=== PATIENT | female | born 1975 | race Caucasian/White ===

== ENCOUNTER 2020-11-10 13:09 | Emergency (ER) | payer OTHER, MEDICAID ==
[~2020-11-10] VITALS: Ht 162.6 cm; Wt 99.3 kg
[~2020-11-10 13:09] MED LIST: SOM350 PO
[2020-11-10 13:44] VITALS: Ht 162.6 cm; Wt 99.3 kg
[2020-11-10 14:29] LABS: BASOPHIL % 0.6 % (0.2-1.3); PLATELET COUNT 398 x10^3mcL (179-408); RED CELL DISTRIBUTION WIDTH 13.5 % (12.3-17.7)
[2020-11-10 14:30] LABS: CHLORIDE SERUM 101 mmol/L (98-107); CREATININE SERUM 0.8 mg/dL (0.6-1.0); GFR1 > 60 mL/min; GLUCOSE SERUM 99 mg/dL (74-106); SODIUM SERUM 137 mmol/L (136-145)
[2020-11-10 14:36] LABS: ALBUMIN 3.8 g/dL (3.4-5.0); ALKALINE PHOSPHATASE 113 U/L (46-116); ALT/SGPT 29 U/L (14-59); AST/SGOT 18 U/L (15-37); BILIRUBIN TOTAL 0.64 mg/dL (0.20-1.00); LIPASE 121 IU/L (73-393)
[2020-11-10 14:38] LABS: TOTAL PROTEIN, SERUM 8.6 g/dL (6.4-8.2)
[2020-11-10] MEDS ORDERED: ROBAXIN-750750 MG PO (15:58)
[2020-11-10 16:37] VITALS: BP 167/95
== END 2020-11-10 16:37 | disposition home or self-care (01) ==
LOC: ED 13:09
PROVIDERS: Emergency Medicine
DX: K42.9 Umbilical hernia without obstruction or gangrene (principal); M54.9 Dorsalgia, unspecified; Z88.5 Allergy status to narcotic agent; Z90.89 Acquired absence of other organs
CPT/HCPCS: J1885; J2405; J7030